=== PATIENT | male | born 1980 ===

== ENCOUNTER 2023-07-29 09:32 | Outpatient (RCR) | payer OTHER ==
[~2023-07-29 09:32] MED LIST: CEPHALEXIN500 M1 PO; XANAX 0.5MG0.5 MG PO
== END 2023-08-01 ==
LOC: WSOH
DX: S61.411D Laceration without foreign body of right hand, subsequent encounter (principal); Y99.0 Civilian activity done for income or pay; W61.91XD Bitten by other birds, subsequent encounter; F41.8 Other specified anxiety disorders; G47.9 Sleep disorder, unspecified; F90.9 Attention-deficit hyperactivity disorder, unspecified type